=== PATIENT | male | born 1975 | race Caucasian/White ===

== ENCOUNTER 2017-08-06 09:03 | Emergency (ER) | payer OTHER ==
[2017-08-06 09:20] VITALS: BP 136/84; PULSE 98; RESP 18; TEMP 97.6
--- NOTE | 2017-08-06 09:32 | ED ---
URI HPI - General Chief Complaint: Upper Respiratory Infection Stated Complaint: vomiting blood, throat swelling, gout Time Seen by Provider: 08/06/17 09:22 Source: patient, RN notes reviewed Mode of arrival: ambulatory Limitations: no limitations - History of Present Illness Initial Comments: This a 42-year-old male presents emergency Department chief complaint sore throat congestion. Patient states it started 4 days ago not any better. Patient states that everything is family is sick. Patient states his throat is swollen and it hurts to swallow but has no difficulty swallowing. Patient states that he did cough so hard the other morning that he noticed some blood in his sputum but states he has not had recurrence of this. Patient states that he's had a fever at home. He does complain of chills. Denies shortness breath, chest pain, nausea vomiting. Patient states that he has also having problems with gout in his left knee and right foot. He states the pain is very similar to his gout in the past. He states that it's minimally swollen at this time. He states he normally takes prednisone for his gout because he's had a renal transplant. - Related Data Previous Rx's Medication Instructions Recorded Acetaminophen-Codeine 300-30mg 1 tab PO Q4H PRN #20 tablet 08/06/17 [Tylenol #3] Amoxicillin 875 mg PO Q12HR #20 tablet 08/06/17 predniSONE 50 mg PO DAILY #5 tab 08/06/17 Allergies Allergy/AdvReac Type Severity Reaction Status Date / Time levofloxacin [From Levaquin] Allergy Swelling Unverified 07/03/15 13:40 Review of Systems ROS Statement: Those systems with pertinent positive or pertinent negative responses have been documented in the HPI. ROS Other: All systems not noted in ROS Statement are negative. Past Medical History Past Medical History: CVA/TIA, Hyperlipidemia, Hypertension Additional Past Medical History / Comment(s): Gout History of Any Multi-Drug Resistant Organisms: None Reported Additional Past Surgical History / Comment(s): Kidney transplant in 1998. Past Psychological History: No Psychological Hx Reported Smoking Status: Never smoker Past Alcohol Use History: None Reported Past Drug Use History: None Reported General Exam Limitations: no limitations General appearance: alert, in no apparent distress Head exam: Present: atraumatic, normocephalic, normal inspection Eye exam: Present: normal appearance, PERRL, EOMI. Absent: scleral icterus, conjunctival injection, periorbital swelling ENT exam: Present: mucous membranes moist, TM's normal bilaterally, normal external ear exam. Absent: normal exam, normal oropharynx (Erythematous posterior pharynx with edematous tonsils, swallowing secretions well) Neck exam: Present: normal inspection, full ROM, lymphadenopathy. Absent: tenderness, meningismus Respiratory exam: Present: normal lung sounds bilaterally. Absent: respiratory distress, wheezes, rales, rhonchi, stridor Cardiovascular Exam: Present: regular rate, normal rhythm, normal heart sounds. Absent: systolic murmur, diastolic murmur, rubs, gallop, clicks Extremities exam: Present: other (Left knee full range of motion there is no tenderness in the popliteal region there is mild tenderness over the patellar region no erythema, warmth there is no calf tenderness. Pulses equal bilaterally, right foot there is tenderness over the first MTP mild swelling mild erythema) Course Vital Signs 08/06/17 09:15 Temperature 97.6 F Pulse Rate 98 Respiratory 18 Rate Blood Pressure 136/84 O2 Sat by Pulse 99 Oximetry Medical Decision Making - Medical Decision Making 42-year-old male present with tumors from for multiple complaints. Patient has strep pharyngitis clinical diagnosis. Patient was started on amoxicillin. Patient also has early sounds of gout in which she's had in the past. Patient was started on prednisone 50 mg for 5 days return parameters were discussed. Disposition Clinical Impression: Strep pharyngitis, Gout Disposition: HOME SELF-CARE Condition: Stable Instructions: Strep Throat (ED) Additional Instructions: Please return to the Emergency Department if symptoms worsen or any other concerns. Prescriptions: Acetaminophen-Codeine 300-30mg [Tylenol #3] 1 tab PO Q4H PRN #20 tablet PRN Reason: pain Amoxicillin 875 mg PO Q12HR #20 tablet predniSONE 50 mg PO DAILY #5 tab Referrals: None,Stated [Primary Care Provider] - 1-2 days Time of Disposition: 09:31
== END 2017-08-06 09:41 | disposition home or self-care (01) ==
LOC: EC 09:03
DX: J02.0 Streptococcal pharyngitis (principal); M10.9 Gout, unspecified; M10.062 Idiopathic gout, left knee; M10.071 Idiopathic gout, right ankle and foot; Z88.1 Allergy status to other antibiotic agents
CPT/HCPCS: 99283

== ENCOUNTER 2021-03-20 13:05 | Emergency (ER) | payer OTHER ==
[2021-03-20 15:25] LABS: Appearance,Urine Clear (Clear); Bilirubin,Urine Negative (Negative); Blood,Urine Negative (Negative); Color,Urine Yellow; Glucose,Urine (UA) Negative (Negative); Ketones,Urine Negative (Negative); Leukocyte Esterase,Urine Negative (Negative); Mucus,Urine Rare /hpf; Nitrite,Urine Negative (Negative); PH, Urine 5.5 (5.0-8.0); Protein,Urine 1+ (Negative); RBC,Urine <1 /hpf (0-5); Specific Gravity,Urine 1.024 (1.001-1.035); Urobilinogen,Urine <2.0 mg/dL (<2.0); WBC,Urine 1 /hpf (0-5)
[2021-03-20] MEDS ORDERED: SODIUM CHLORIDE 0.9% 1,000 ML IV ONE (16:09)
[2021-03-20] MEDS ORDERED: ACETAMINOPHEN TAB 500 MG TAB PO STA (16:13)
--- NOTE | 2021-03-20 16:13 | ED ---
General Adult HPI - General Chief complaint: Nausea/Vomiting/Diarrhea Stated complaint: Fever,Vomiting Time Seen by Provider: 03/20/21 16:02 Source: patient, family, RN notes reviewed, old records reviewed Mode of arrival: ambulatory Limitations: no limitations - History of Present Illness Initial comments: 45-year-old male history of renal failure status post kidney transplant presents for evaluation of fever, nausea vomiting. Patient has had 3 episodes of vomiting over the past 24 hours. He has not been able to keep down his medication including his antirejection medication. He's had very little to drink. He has had subjective fever and chills. He's had cough and nasal congestion. He has not been vaccinated against coronavirus. - Related Data Home Medications Medication Instructions Recorded Confirmed Cyclophosphamide 150 mg PO BID 08/06/17 03/20/21 mycophenolate mofetiL [Cellcept] 750 mg PO BID 08/06/17 03/20/21 predniSONE 5 mg PO Q48H 08/06/17 03/20/21 predniSONE 10 mg PO Q48H 08/06/17 03/20/21 Allopurinol [Zyloprim] 300 mg PO DAILY 03/20/21 03/20/21 Atorvastatin [Lipitor] 20 mg PO DAILY 03/20/21 03/20/21 Ergocalciferol (Vitamin D2) 1,250 mcg PO Q14D 03/20/21 03/20/21 [Drisdol (50,000 Iu)] Febuxostat 80 mg PO DAILY 03/20/21 03/20/21 amLODIPine [Norvasc] 10 mg PO DAILY 03/20/21 03/20/21 lisinopriL [Zestril] 2.5 mg PO DAILY 03/20/21 03/20/21 Allergies Allergy/AdvReac Type Severity Reaction Status Date / Time levofloxacin [From Levaquin] Allergy Swelling Verified 03/20/21 13:22 Review of Systems ROS Statement: Those systems with pertinent positive or pertinent negative responses have been documented in the HPI. ROS Other: All systems not noted in ROS Statement are negative. Past Medical History Past Medical History: CVA/TIA, Hyperlipidemia, Hypertension Additional Past Medical History / Comment(s): Gout History of Any Multi-Drug Resistant Organisms: None Reported Additional Past Surgical History / Comment(s): Kidney transplant in 1998. Past Psychological History: No Psychological Hx Reported Smoking Status: Never smoker Past Alcohol Use History: None Reported Past Drug Use History: None Reported General Exam Limitations: no limitations General appearance: alert, in no apparent distress Head exam: Present: atraumatic, normocephalic Eye exam: Present: normal appearance, PERRL ENT exam: Present: mucous membranes dry Neck exam: Present: normal inspection. Absent: tenderness, meningismus Respiratory exam: Present: normal lung sounds bilaterally. Absent: respiratory distress, wheezes Cardiovascular Exam: Present: regular rate, normal rhythm GI/Abdominal exam: Present: soft. Absent: distended, tenderness, guarding, rebound Extremities exam: Present: normal inspection, normal capillary refill. Absent: calf tenderness Neurological exam: Present: alert, oriented X3, CN II-XII intact. Absent: motor sensory deficit Psychiatric exam: Present: normal affect, normal mood Skin exam: Present: warm, dry, intact. Absent: cyanosis, diaphoretic Course Vital Signs 03/20/21 13:19 Temperature 98.8 F Pulse Rate 99 Respiratory 18 Rate Blood Pressure 105/67 O2 Sat by Pulse 95 Oximetry - Reevaluation(s) Reevaluation #1: 03/20/21 1969 I did discuss case with Dr. Whaley regarding whether or not this patient can receive monoclonal antibodies. She had a discussion with transplant surgery and it was indicated that the patient is able to receive monoclonal antibodies as treatment for coronavirus. Medical Decision Making - Medical Decision Making 45-year-old male history of renal transplant presenting with nausea vomiting, coughing congestion. Patient does test positive for coronavirus. He's been symptomatically for approximately 2 days. I did discuss case with nephrology regarding possibility monoclonal antibodies and the patient is a candidate. He is administered monoclonal antibodies in the emergency department. As well as some IV fluid. His kidney function is baseline at 1.3 which the patient reports a normal baseline creatinine of 1.3-1.7. He has no further episodes of nausea vomiting while in the emergency department. 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 - Lab Data Result diagrams: 03/20/21 16:59 03/20/21 16:59 Lab Results 03/20/21 03/20/21 03/20/21 Range/Units 15:04 15:08 16:59 WBC 5.1 (3.8-10.6) k/uL RBC 4.50 (4.30-5.90) m/uL Hgb 14.3 (13.0-17.5) gm/dL Hct 42.2 (39.0-53.0) % MCV 93.7 (80.0-100.0) fL MCH 31.7 (25.0-35.0) pg MCHC 33.8 (31.0-37.0) g/dL RDW 13.5 (11.5-15.5) % Plt Count 141 L (150-450) k/uL MPV 7.9 Neutrophils % 72 % Lymphocytes % 22 % Monocytes % 4 % Eosinophils % 1 % Basophils % 0 % Neutrophils # 3.7 (1.3-7.7) k/uL Lymphocytes # 1.1 (1.0-4.8) k/uL Monocytes # 0.2 (0-1.0) k/uL Eosinophils # 0.0 (0-0.7) k/uL Basophils # 0.0 (0-0.2) k/uL Sodium (137-145) mmol/L Potassium (3.5-5.1) mmol/L Chloride (98-107) mmol/L Carbon Dioxide (22-30) mmol/L Anion Gap mmol/L BUN (9-20) mg/dL Creatinine (0.66-1.25) mg/dL Est GFR (CKD-EPI)AfAm (>60 ml/min/1.73 sqM) Est GFR (CKD-EPI)NonAf (>60 ml/min/1.73 sqM) Glucose (74-99) mg/dL Calcium (8.4-10.2) mg/dL Magnesium (1.6-2.3) mg/dL Total Bilirubin (0.2-1.3) mg/dL AST (17-59) U/L ALT (4-49) U/L Alkaline Phosphatase (38-126) U/L Total Protein (6.3-8.2) g/dL Albumin (3.5-5.0) g/dL Urine Color Yellow Urine Appearance Clear (Clear) Urine pH 5.5 (5.0-8.0) Ur Specific [place] 1.024 (1.001-1.035) Urine Protein 1+ H (Negative) Urine Glucose (UA) Negative (Negative) Urine Ketones Negative (Negative) Urine Blood Negative (Negative) Urine Nitrite Negative (Negative) Urine Bilirubin Negative (Negative) Urine Urobilinogen <2.0 (<2.0) mg/dL Ur Leukocyte Esterase Negative (Negative) Urine RBC <1 (0-5) /hpf Urine WBC 1 (0-5) /hpf Urine Mucus Rare H (None) /hpf Coronavirus (PCR) Detected A (Not Detectd) 03/20/21 Range/Units 16:59 WBC (3.8-10.6) k/uL RBC (4.30-5.90) m/uL Hgb (13.0-17.5) gm/dL Hct (39.0-53.0) % MCV (80.0-100.0) fL MCH (25.0-35.0) pg MCHC (31.0-37.0) g/dL RDW (11.5-15.5) % Plt Count (150-450) k/uL MPV Neutrophils % % Lymphocytes % % Monocytes % % Eosinophils % % Basophils % % Neutrophils # (1.3-7.7) k/uL Lymphocytes # (1.0-4.8) k/uL Monocytes # (0-1.0) k/uL Eosinophils # (0-0.7) k/uL Basophils # (0-0.2) k/uL Sodium 136 L (137-145) mmol/L Potassium 4.1 (3.5-5.1) mmol/L Chloride 100 (98-107) mmol/L Carbon Dioxide 27 (22-30) mmol/L Anion Gap 9 mmol/L BUN 15 (9-20) mg/dL Creatinine 1.33 H (0.66-1.25) mg/dL Est GFR (CKD-EPI)AfAm 76 (>60 ml/min/1.73 sqM) Est GFR (CKD-EPI)NonAf 65 (>60 ml/min/1.73 sqM) Glucose 101 H (74-99) mg/dL Calcium 9.4 (8.4-10.2) mg/dL Magnesium 1.6 (1.6-2.3) mg/dL Total Bilirubin 0.6 (0.2-1.3) mg/dL AST 27 (17-59) U/L ALT 22 (4-49) U/L Alkaline Phosphatase 73 (38-126) U/L Total Protein 7.5 (6.3-8.2) g/dL Albumin 4.2 (3.5-5.0) g/dL Urine Color Urine Appearance (Clear) Urine pH (5.0-8.0) Ur Specific [place] (1.001-1.035) Urine Protein (Negative) Urine Glucose (UA) (Negative) Urine Ketones (Negative) Urine Blood (Negative) Urine Nitrite (Negative) Urine Bilirubin (Negative) Urine Urobilinogen (<2.0) mg/dL Ur Leukocyte Esterase (Negative) Urine RBC (0-5) /hpf Urine WBC (0-5) /hpf Urine Mucus (None) /hpf Coronavirus (PCR) (Not Detectd) Disposition Clinical Impression: COVID-19 Disposition: HOME SELF-CARE Condition: Fair Instructions (If sedation given, give patient instructions): Coronavirus Disease 2019 (COVID-19) Is patient prescribed a controlled substance at d/c from ED?: No Referrals: Renu Bone DO [Primary Care Provider] - 1-2 days Time of Disposition: 18:06
--- NOTE | 2021-03-20 16:53 | XR ---
EXAMINATION TYPE: XR chest 2V DATE OF EXAM: 03/20/2021 COMPARISON: None INDICATION: Fever chills vomiting TECHNIQUE: Frontal and lateral views of the chest are obtained. FINDINGS: The heart size is normal. The pulmonary vasculature is normal. Some platelike atelectasis at the left costophrenic angle. Lungs are otherwise clear.. IMPRESSION: 1. Platelike atelectasis left costophrenic angle.
[2021-03-20] MEDS ORDERED: SODIUM CHLORIDE 0.9% 50 ML IVPB ONE (17:00)
[2021-03-20 17:06] LABS: Basophils % (A) 0 %; Eosinophils % (A) 1 %; HCT 42.2 % (39.0-53.0); HGB 14.3 gm/dL (13.0-17.5); Lymphocytes # (A) 1.1 k/uL (1.0-4.8); Lymphocytes % (A) 22 %; MCH 31.7 pg (25.0-35.0); MCHC 33.8 g/dL (31.0-37.0); MCV 93.7 fL (80.0-100.0); Mean Platelet Volume 7.9; Monocytes # (A) 0.2 k/uL (0-1.0); Monocytes % (A) 4 %; Neutrophils # (A) 3.7 k/uL (1.3-7.7); Neutrophils % (A) 72 %; Platelet Count 141 k/uL (150-450); RDW 13.5 % (11.5-15.5); WBC 5.1 k/uL (3.8-10.6)
[2021-03-20] MEDS ORDERED: BAMLANIVIMAB (EUA) 700 MG, ETESEVIMAB (EUA) 1,400 MG in SODIUM CHLORIDE 0.9% 50 ML IVPB ONE (17:15)
[2021-03-20 17:26] LABS: Albumin 4.2 g/dL (3.5-5.0); Calcium 9.4 mg/dL (8.4-10.2); Magnesium 1.6 mg/dL (1.6-2.3); Potassium 4.1 mmol/L (3.5-5.1); Total Bilirubin 0.6 mg/dL (0.2-1.3); Total Protein 7.5 g/dL (6.3-8.2)
[2021-03-20 19:54] VITALS: BP 110/68; PULSE 91; RESP 16; TEMP 98.2
== END 2021-03-20 19:53 | disposition home or self-care (01) ==
LOC: EC 13:05
DX: U07.1 COVID-19 (principal); I10 Essential (primary) hypertension; E78.5 Hyperlipidemia, unspecified; Z88.1 Allergy status to other antibiotic agents; Z86.73 Personal history of transient ischemic attack (TIA), and cerebral infarction without residual deficits; Z94.0 Kidney transplant status; Z79.899 Other long term (current) drug therapy
CPT/HCPCS: 99284 ×2; 96361 ×3; 36415; 80053; 83735; 85025; 81001; 87635; 71046; M0245; J3490; 96360